=== PATIENT | female | born 1955 | race Caucasian/White ===

== ENCOUNTER 2020-09-19 09:49 | Inpatient (IN) | payer OTHER ==
[~2020-09-19] VITALS: Ht 162.6 cm; Wt 61.2 kg
[2020-09-19 09:49] VITALS: BP_SYST 189
[2020-09-19 11:30] LABS: BASOPHILS % (AUTO) 0.6 % (0.0-2.0); HEMATOCRIT 43.1 % (36-48); HEMOGLOBIN 15.2 g/dL (12.0-16.0); LYMPHOCYTES # (AUTO) 0.4 K/uL (1.0-5.5); LYMPHOCYTES % (AUTO) 6.9 % (20.5-51.5); MEAN CORPUSCULAR HEMOGLOBIN 31 pg (27-31); MEAN CORPUSCULAR HGB CONC 35 % (32-36); MEAN CORPUSCULAR VOLUME 89 fL (79.0-98.0); MONOCYTES # (AUTO) 0.2 K/uL (0.0-1.0); MONOCYTES % (AUTO) 2.9 % (1.7-9.3); NEUTROPHILS # (AUTO) 4.7 K/uL (1.8-7.7); NEUTROPHILS % (AUTO) 89.6 % (40.0-70.0); PLATELET COUNT (AUTO) 128 K/uL (130-430); RED BLOOD CELL COUNT(AUTO) 4.86 MIL/uL (4.2-6.2); RED CELL DISTRIBUTION WIDTH 13.4 % (9.0-15.0); WHITE BLOOD COUNT (AUTO) 5.2 K/uL (4.8-10.8)
[2020-09-19] MEDS ORDERED: PIPERACILLIN/TAZO 4.5 GM in NS 100 ML IV ONE (11:30)
[2020-09-19 11:44] LABS: CALCIUM 8.2 mg/dL (8.4-11.0); CREATININE 0.44 mg/dL (0.55-1.30)
[2020-09-19] MEDS ORDERED: NACL 0.9% 1,000 ML IV ONE (11:45)
[2020-09-19 11:51] LABS: ALBUMIN 2.6 g/dL (3.4-4.8); TOTAL BILIRUBIN 0.7 mg/dL (0.0-1.0)
[2020-09-19 12:29] LABS: POTASSIUM 2.9 mmol/L (3.5-5.1)
[2020-09-19 12:54] LABS: CKMB RELATIVE INDEX 0.5 (0.0-2.9); CREATINE KINASE MB 2.7 ng/mL (0-3.6)
[2020-09-19] MEDS ORDERED: VANCOMYCIN HCL 1,500 MG in NS 250 ML IV ONE (13:00)
[2020-09-19] MEDS ORDERED: PIPERACILLIN/TAZOBACTAM 4.5 GM/VIAL (ZOSYN) IV ONE (14:27)
[2020-09-19] MEDS ORDERED: KCL 20 mEq in 100 mL (PREMIX) 100 ML IV ONE (17:50)
[2020-09-19] MEDS: KCL 20 mEq in 100 mL (PREMIX) 100 ML IV SCH ×2 (17:51→20:23)
[2020-09-19] MEDS ORDERED: ALBUTEROL MDI INHALATION 8 GM INH INH PRN (18:00)
[2020-09-19] MEDS: DECADRON 4 MG TABLET PO SCH (18:58)
[2020-09-19] MEDS ORDERED: hydrALAZINE HCL 20 MG/ML VIAL IVP PRN (19:30)
[2020-09-19] MEDS ORDERED: ACETAMINOPHEN 325 MG TABLET PO PRN (19:45)
[2020-09-19] MEDS ORDERED: ENOXAPARIN SODIUM 40 MG/0.4 ML SYRINGE SUBCUT ONE (19:45)
[2020-09-19] MEDS ORDERED: ONDANSETRON HCL 4 MG/2 ML VIAL IVP PRN (19:45)
[2020-09-19] MEDS: NICOTINE 14 MG/24 HR PATCH.TD24 TD SCH (19:45)
[2020-09-19] MEDS ORDERED: lisinopriL 5 MG TABLET PO ONE (19:45)
[2020-09-19 19:51] LABS: C-REACTIVE PROTEIN QUANT 11.5 mg/dL (0-0.5)
[2020-09-20] MEDS ORDERED: DIPHENHYDRAMINE INJ 50 MG/ML VIAL IVP ONE (04:15)
[2020-09-20] MEDS ORDERED: DIPHENHYDRAMINE INJ 50 MG/ML VIAL ONE (04:16)
[2020-09-20 07:22] LABS: BASOPHILS % (AUTO) 0.3 % (0.0-2.0); HEMATOCRIT 46.1 % (36-48); HEMOGLOBIN 16.2 g/dL (12.0-16.0); LYMPHOCYTES # (AUTO) 0.4 K/uL (1.0-5.5); LYMPHOCYTES % (AUTO) 9.9 % (20.5-51.5); MEAN CORPUSCULAR HEMOGLOBIN 31 pg (27-31); MEAN CORPUSCULAR HGB CONC 35 % (32-36); MEAN CORPUSCULAR VOLUME 89 fL (79.0-98.0); MONOCYTES # (AUTO) 0.1 K/uL (0.0-1.0); MONOCYTES % (AUTO) 3.1 % (1.7-9.3); NEUTROPHILS # (AUTO) 3.4 K/uL (1.8-7.7); NEUTROPHILS % (AUTO) 86.7 % (40.0-70.0); PLATELET COUNT (AUTO) 122 K/uL (130-430); RED BLOOD CELL COUNT(AUTO) 5.18 MIL/uL (4.2-6.2); RED CELL DISTRIBUTION WIDTH 13.2 % (9.0-15.0); WHITE BLOOD COUNT (AUTO) 3.9 K/uL (4.8-10.8)
[2020-09-20 08:01] LABS: CREATININE 0.5 mg/dL (0.55-1.30); PHOSPHORUS 2.9 mg/dL (2.7-4.5)
[2020-09-20] MEDS ORDERED: LISINOPRIL 10 MG TABLET (PRINIVIL) ONE (08:20)
[2020-09-20] MEDS ORDERED: PANTOPRAZOLE SODIUM 40 MG/VIAL (PROTONIX) ONE (08:20)
[2020-09-20] MEDS: PANTOPRAZOLE SODIUM 40 MG/VIAL (PROTONIX) IVP SCH (08:21)
[2020-09-20] MEDS: NICOTINE 14 MG/24 HR PATCH.TD24 TD SCH (08:22)
[2020-09-20] MEDS ORDERED: lisinopriL 5 MG TABLET PO SCH (09:00)
[2020-09-20 09:34] LABS: POTASSIUM 2.9 mmol/L (3.5-5.1)
[2020-09-20] MEDS ORDERED: POTASSIUM CHLORIDE 40 MEQ in NS 250 ML IV ONE (13:30)
[2020-09-20] MEDS ORDERED: MAGNESIUM SULFATE 50 ML IV ONE ×2 (13:45→13:49)
[2020-09-20] MEDS ORDERED: KCL 20 mEq in 100 mL (PREMIX) 200 ML IV ONE (15:42)
[2020-09-20] MEDS ORDERED: LORazepam 1 MG TABLET ONE (16:06)
[2020-09-20] MEDS: LORazepam 1 MG TABLET PO PRN (16:07)
[2020-09-20 20:00] VITALS: BP_SYST 159
[2020-09-20] MEDS ORDERED: ENOXAPARIN SODIUM 40 MG/0.4 ML SYRINGE SUBCUT SCH (21:00)
[2020-09-20] MEDS ORDERED: POTASSIUM CHLORIDE 20 MEQ/PKT PACKET PO ONE (21:00)
[2020-09-20] MEDS: DECADRON 4 MG TABLET PO SCH (21:50)
[2020-09-20] MEDS ORDERED: BACL10TA PO (23:05)
[2020-09-20] MEDS ORDERED: SENN8.6T19 PO (23:05)
[2020-09-20] MEDS ORDERED: ROPI0.252 PO (23:05)
[2020-09-20] MEDS ORDERED: ISOS30TA6 PO (23:05)
[2020-09-20] MEDS ORDERED: HYDR-4038 PO (23:05)
[2020-09-20] MEDS ORDERED: PERC10 PO (23:05)
[2020-09-20] MEDS ORDERED: LORA-258 PO (23:05)
[2020-09-20] MEDS ORDERED: CITA40TA22 PO (23:05)
[2020-09-20] MEDS ORDERED: OXYB5TAB16 PO (23:05)
[2020-09-20] MEDS ORDERED: ASA81 PO (23:05)
[2020-09-20] MEDS ORDERED: RISP2TAB5 PO (23:05)
[2020-09-20] MEDS ORDERED: CARV12.548 PO (23:05)
[2020-09-20] MEDS ORDERED: DOCU-144 PO (23:05)
[2020-09-20] MEDS ORDERED: OMEP40CA13 PO (23:05)
[2020-09-20] MEDS ORDERED: CETI10CA11 PO (23:05)
[2020-09-20] MEDS ORDERED: CALC-1263 PO (23:05)
[2020-09-20] MEDS ORDERED: SIMV-46 PO (23:05)
[2020-09-20] MEDS ORDERED: MELO15TA13 PO (23:05)
[2020-09-20] MEDS ORDERED: TEMA30CA5 PO (23:05)
[2020-09-20] MEDS ORDERED: BUSP5TAB3 PO (23:05)
[2020-09-21 00:50] VITALS: BP_SYST 178
[2020-09-21 01:20] VITALS: BP_SYST 149
[2020-09-21] MEDS ORDERED: TEMAZEPAM 15 MG CAPSULE PO PRN (06:45)
[2020-09-21] MEDS ORDERED: POTASSIUM CHLORIDE 20 MEQ TAB.PRT.SR PO ONE ×2 (07:45→21:15)
[2020-09-21 08:00] VITALS: BP_SYST 140
[2020-09-21] MEDS: OXYCODONE/ACETAMINOPHEN *10*mg/325 mg TABLET PO PRN ×3 (08:15→21:16)
[2020-09-21] MEDS: CALCIUM CARBONATE/VITAMIN D3 1 TAB TABLET PO SCH ×2 (08:32→21:17)
[2020-09-21] MEDS: SENNOSIDES 8.6 MG TABLET PO SCH ×2 (08:32→21:17)
[2020-09-21] MEDS: LORATADINE 10 MG TABLET PO SCH (08:32)
[2020-09-21] MEDS: CITALOPRAM HYDROBROMIDE 20 MG TABLET PO SCH (08:32)
[2020-09-21] MEDS: risperiDONE 1 MG TABLET (RisperDAL) PO SCH ×2 (08:32→21:17)
[2020-09-21] MEDS: OXYBUTYNIN CHLORIDE 5 MG TABLET PO SCH ×2 (08:32→21:17)
[2020-09-21] MEDS: ASCORBIC ACID 500 MG TABLET PO SCH ×2 (08:32→21:17)
[2020-09-21] MEDS: PANTOPRAZOLE SODIUM 40 MG/VIAL (PROTONIX) IVP SCH (08:32)
[2020-09-21] MEDS: DOCUSATE SODIUM 100 MG CAPSULE PO SCH ×2 (08:32→21:17)
[2020-09-21] MEDS: busPIRone HCL 5 MG TABLET PO SCH ×4 (08:32→21:17)
[2020-09-21] MEDS ORDERED: ASPIRIN 81 MG TAB.CHEW PO SCH (09:00)
[2020-09-21] MEDS ORDERED: [UNRECOGNIZED DRUG - REMARK] PO SCH (09:00)
[2020-09-21] MEDS ORDERED: AZITHROMYCIN 250 MG TABLET PO ONE (09:00)
[2020-09-21 09:06] LABS: BASOPHILS % (AUTO) 0.3 % (0.0-2.0); HEMATOCRIT 49.5 % (36-48); HEMOGLOBIN 17.4 g/dL (12.0-16.0); LYMPHOCYTES # (AUTO) 0.4 K/uL (1.0-5.5); LYMPHOCYTES % (AUTO) 3.3 % (20.5-51.5); MEAN CORPUSCULAR HEMOGLOBIN 31 pg (27-31); MEAN CORPUSCULAR HGB CONC 35 % (32-36); MEAN CORPUSCULAR VOLUME 88 fL (79.0-98.0); MONOCYTES # (AUTO) 0.3 K/uL (0.0-1.0); MONOCYTES % (AUTO) 2.5 % (1.7-9.3); NEUTROPHILS % (AUTO) 93.9 % (40.0-70.0); PLATELET COUNT (AUTO) 176 K/uL (130-430); RED BLOOD CELL COUNT(AUTO) 5.61 MIL/uL (4.2-6.2); RED CELL DISTRIBUTION WIDTH 13.5 % (9.0-15.0); WHITE BLOOD COUNT (AUTO) 10.7 K/uL (4.8-10.8)
[2020-09-21 09:12] LABS: CALCIUM 8.5 mg/dL (8.4-11.0); CREATININE 0.47 mg/dL (0.55-1.30); POTASSIUM 3.4 mmol/L (3.5-5.1)
[2020-09-21 09:25] LABS: C-REACTIVE PROTEIN QUANT 5.4 mg/dL (0-0.5)
[2020-09-21] MEDS: ISOSORBIDE MONONITRATE 30 MG TAB.ER.24H PO SCH (09:50)
[2020-09-21] MEDS: CARVEDILOL 12.5 MG TABLET (COREG) PO SCH ×2 (09:50→21:19)
[2020-09-21] MEDS: lisinopriL 5 MG TABLET PO SCH (09:50)
[2020-09-21] MEDS: hydrALAZINE HCL 25 MG TABLET PO SCH ×3 (09:50→21:18)
[2020-09-21] MEDS: cefTRIAXone 1 GM in D5W 50 ML IV SCH (10:00)
[2020-09-21] MEDS: NICOTINE 14 MG/24 HR PATCH.TD24 TD SCH (11:00)
[2020-09-21] MEDS ORDERED: ENOXAPARIN SODIUM 40 MG/0.4 ML SYRINGE SUBCUT ONE (11:30)
[2020-09-21 12:00] VITALS: BP_SYST 106
[2020-09-21] MEDS: LORazepam 1 MG TABLET PO PRN ×2 (14:30→23:32)
[2020-09-21 16:00] VITALS: BP_SYST 122
[2020-09-21 20:00] VITALS: BP_SYST 133
[2020-09-21] MEDS: roPINIRole HCL 0.25 MG ( REQUIP )TABLET PO SCH (21:17)
[2020-09-21] MEDS: SIMVASTATIN 40 MG TABLET PO SCH (21:17)
[2020-09-21] MEDS: ENOXAPARIN SODIUM 40 MG/0.4 ML SYRINGE SUBCUT SCH (21:20)
[2020-09-21] MEDS: NACL 0.9% 1,000 ML IV SCH (23:31)
[2020-09-22] VITALS (8 sets, daily range): BP systolic 128–151
[2020-09-22 07:30] LABS: BASOPHILS % (AUTO) 0.2 % (0.0-2.0); HEMATOCRIT 39.7 % (36-48); HEMOGLOBIN 13.7 g/dL (12.0-16.0); LYMPHOCYTES # (AUTO) 0.6 K/uL (1.0-5.5); LYMPHOCYTES % (AUTO) 7.7 % (20.5-51.5); MEAN CORPUSCULAR HEMOGLOBIN 31 pg (27-31); MEAN CORPUSCULAR HGB CONC 35 % (32-36); MEAN CORPUSCULAR VOLUME 89 fL (79.0-98.0); MONOCYTES # (AUTO) 0.4 K/uL (0.0-1.0); NEUTROPHILS # (AUTO) 6.3 K/uL (1.8-7.7); NEUTROPHILS % (AUTO) 87.1 % (40.0-70.0); PLATELET COUNT (AUTO) 164 K/uL (130-430); RED BLOOD CELL COUNT(AUTO) 4.46 MIL/uL (4.2-6.2); RED CELL DISTRIBUTION WIDTH 13.2 % (9.0-15.0); WHITE BLOOD COUNT (AUTO) 7.3 K/uL (4.8-10.8)
[2020-09-22 07:38] LABS: CREATININE 0.42 mg/dL (0.55-1.30); POTASSIUM 4.4 mmol/L (3.5-5.1)
[2020-09-22] MEDS: ENOXAPARIN SODIUM 40 MG/0.4 ML SYRINGE SUBCUT SCH ×2 (08:16→21:07)
[2020-09-22] MEDS: NICOTINE 14 MG/24 HR PATCH.TD24 TD SCH (08:16)
[2020-09-22] MEDS: PANTOPRAZOLE SODIUM 40 MG/VIAL (PROTONIX) IVP SCH (08:16)
[2020-09-22] MEDS: LORATADINE 10 MG TABLET PO SCH (08:17)
[2020-09-22] MEDS: CITALOPRAM HYDROBROMIDE 20 MG TABLET PO SCH (08:17)
[2020-09-22] MEDS: OXYCODONE/ACETAMINOPHEN *10*mg/325 mg TABLET PO PRN ×2 (08:17→16:30)
[2020-09-22] MEDS: OXYBUTYNIN CHLORIDE 5 MG TABLET PO SCH ×2 (08:18→21:05)
[2020-09-22] MEDS: CALCIUM CARBONATE/VITAMIN D3 1 TAB TABLET PO SCH ×2 (08:18→21:05)
[2020-09-22] MEDS: busPIRone HCL 5 MG TABLET PO SCH ×4 (08:18→21:05)
[2020-09-22] MEDS: AZITHROMYCIN 250 MG TABLET PO SCH (08:18)
[2020-09-22] MEDS: ASCORBIC ACID 500 MG TABLET PO SCH ×2 (08:18→21:05)
[2020-09-22] MEDS: risperiDONE 1 MG TABLET (RisperDAL) PO SCH ×2 (08:18→21:05)
[2020-09-22] MEDS: SENNOSIDES 8.6 MG TABLET PO SCH ×2 (08:19→21:05)
[2020-09-22] MEDS: DOCUSATE SODIUM 100 MG CAPSULE PO SCH ×2 (08:19→21:05)
[2020-09-22] MEDS: cefTRIAXone 1 GM in D5W 50 ML IV SCH (08:23)
[2020-09-22] MEDS: lisinopriL 5 MG TABLET PO SCH (09:00)
[2020-09-22] MEDS: CARVEDILOL 12.5 MG TABLET (COREG) PO SCH ×2 (09:00→21:06)
[2020-09-22] MEDS: hydrALAZINE HCL 25 MG TABLET PO SCH ×3 (09:51→21:06)
[2020-09-22] MEDS: ISOSORBIDE MONONITRATE 30 MG TAB.ER.24H PO SCH (09:51)
[2020-09-22 10:11] LABS: ERYTHROCYTE SEDIMENTATION RATE 18 MM/HR (0-20)
[2020-09-22] MEDS: LORazepam 1 MG TABLET PO PRN ×2 (10:30→21:10)
[2020-09-22] MEDS ORDERED: ASCO500T20 PO (10:54)
[2020-09-22] MEDS ORDERED: DEXA6TAB5 PO (10:54)
[2020-09-22] MEDS ORDERED: APIX2.5T PO (10:54)
[2020-09-22] MEDS: roPINIRole HCL 0.25 MG ( REQUIP )TABLET PO SCH (21:05)
[2020-09-22] MEDS: SIMVASTATIN 40 MG TABLET PO SCH (21:05)
[2020-09-22] MEDS: NACL 0.9% 1,000 ML IV SCH (23:26)
[2020-09-23] VITALS: BP_SYST 132
[2020-09-23] MEDS: LORazepam 1 MG TABLET PO PRN (05:54)
[2020-09-23 07:12] LABS: BASOPHILS % (AUTO) 0.5 % (0.0-2.0); EOSINOPHILS % (AUTO) 0.2 % (0.0-4.0); HEMATOCRIT 38.7 % (36-48); HEMOGLOBIN 13.4 g/dL (12.0-16.0); LYMPHOCYTES # (AUTO) 0.7 K/uL (1.0-5.5); LYMPHOCYTES % (AUTO) 11.7 % (20.5-51.5); MEAN CORPUSCULAR HEMOGLOBIN 31 pg (27-31); MEAN CORPUSCULAR HGB CONC 35 % (32-36); MEAN CORPUSCULAR VOLUME 91 fL (79.0-98.0); MONOCYTES # (AUTO) 0.2 K/uL (0.0-1.0); MONOCYTES % (AUTO) 3.4 % (1.7-9.3); NEUTROPHILS # (AUTO) 4.9 K/uL (1.8-7.7); NEUTROPHILS % (AUTO) 84.2 % (40.0-70.0); PLATELET COUNT (AUTO) 164 K/uL (130-430); RED BLOOD CELL COUNT(AUTO) 4.28 MIL/uL (4.2-6.2); RED CELL DISTRIBUTION WIDTH 13.3 % (9.0-15.0); WHITE BLOOD COUNT (AUTO) 5.9 K/uL (4.8-10.8)
[2020-09-23 08:00] VITALS: BP_SYST 139
[2020-09-23 08:05] LABS: CALCIUM 8.1 mg/dL (8.4-11.0); CREATININE 0.45 mg/dL (0.55-1.30)
[2020-09-23 08:36] LABS: ERYTHROCYTE SEDIMENTATION RATE 25 MM/HR (0-20)
[2020-09-23] MEDS ORDERED: LORATADINE 10 MG TABLET ONE (08:49)
[2020-09-23] MEDS ORDERED: ENOXAPARIN SODIUM 80 MG/0.8 ML SYRINGE ONE (08:52)
[2020-09-23] MEDS: cefTRIAXone 1 GM in D5W 50 ML IV SCH (09:00)
[2020-09-23] MEDS: CALCIUM CARBONATE/VITAMIN D3 1 TAB TABLET PO SCH (09:00)
[2020-09-23] MEDS: busPIRone HCL 5 MG TABLET PO SCH (09:00)
[2020-09-23] MEDS: OXYBUTYNIN CHLORIDE 5 MG TABLET PO SCH (09:00)
[2020-09-23] MEDS: hydrALAZINE HCL 25 MG TABLET PO SCH (09:00)
[2020-09-23] MEDS: ENOXAPARIN SODIUM 40 MG/0.4 ML SYRINGE SUBCUT SCH (09:00)
[2020-09-23] MEDS: LORATADINE 10 MG TABLET PO SCH (09:00)
[2020-09-23] MEDS: AZITHROMYCIN 250 MG TABLET PO SCH (09:00)
[2020-09-23] MEDS: PANTOPRAZOLE SODIUM 40 MG/VIAL (PROTONIX) IVP SCH (09:00)
[2020-09-23] MEDS: risperiDONE 1 MG TABLET (RisperDAL) PO SCH (09:00)
[2020-09-23] MEDS: SENNOSIDES 8.6 MG TABLET PO SCH (09:00)
[2020-09-23] MEDS: CARVEDILOL 12.5 MG TABLET (COREG) PO SCH (09:00)
[2020-09-23] MEDS: lisinopriL 5 MG TABLET PO SCH (09:00)
[2020-09-23] MEDS: CITALOPRAM HYDROBROMIDE 20 MG TABLET PO SCH (09:00)
[2020-09-23] MEDS: NICOTINE 14 MG/24 HR PATCH.TD24 TD SCH (09:00)
[2020-09-23] MEDS: ASCORBIC ACID 500 MG TABLET PO SCH (09:00)
[2020-09-23] MEDS: ISOSORBIDE MONONITRATE 30 MG TAB.ER.24H PO SCH (09:00)
[2020-09-23] MEDS: DOCUSATE SODIUM 100 MG CAPSULE PO SCH (09:00)
[2020-09-23] MEDS ORDERED: ASCO500T20 PO (14:15)
[2020-09-23] MEDS ORDERED: APIX2.5T PO (14:15)
[2020-09-23] MEDS ORDERED: DEXA6TAB5 PO (14:15)
[2020-09-23] MEDS ORDERED: AZIT250T PO (14:15)
== END 2020-09-23 13:06 | disposition home or self-care (01) | DRG 871 ==
LOC: SED 09:49 → EDBD 09:49 → STU 15:40
PROVIDERS: ADMIT Hospitalist; ATTEND Hospitalist
DX: A41.9 Sepsis, unspecified organism (principal); U07.1 COVID-19; E43 Unspecified severe protein-calorie malnutrition; J12.89 Other viral pneumonia; J96.01 Acute respiratory failure with hypoxia; E87.1 Hypo-osmolality and hyponatremia; F11.20 Opioid dependence, uncomplicated; E87.6 Hypokalemia; G90.9 Disorder of the autonomic nervous system, unspecified; F03.90 Unspecified dementia, unspecified severity, without behavioral disturbance, psychotic disturbance, mood disturbance, and anxiety; F17.200 Nicotine dependence, unspecified, uncomplicated; I10 Essential (primary) hypertension; Z68.23 Body mass index [BMI] 23.0-23.9, adult
CPT/HCPCS: 36415; 70450-TC; 71045; 72125-TC; 76376; 80048; 80053; 82550-TC; 82553-TC; 83605; 83615-TC; 83735-TC; 84100-TC; 84484; 85025; 85379; 85651-TC; 86140; 87081; 93005; 93306; 93880; 96365; 96372; 97110-GP; 97116-GP; 97163; 99285; C9113; G0378; J0360; J0696; J1200; J1650; J2405; J2543; J3475; J3480; J7050; J7060; J8540; Q0144